=== PATIENT | female | born 1965 | race Caucasian/White ===

== ENCOUNTER 2017-01-12 08:59 | Observation (INO) | payer BC ==
[~2017-01-12] VITALS: Ht 160 cm; Wt 158.8 kg
--- NOTE | ~2017-01-12 | EKG ---
[address] [address] ELECTROCARDIOGRAM REPORT Name: SAMANTHA YEN Room #: 437-P [facility]#: [id number] Admission: 01/12/17 Attend Phys: Tom Alfaro MD Discharge: Date of : 63 Report #: [id number] THIS REPORT FOR: //name// [facility] ED Test Date: 2017-01-12 Test Time: 09:05:12 Pat Name: SAMANTHA YEN Department: Room: [facility] Gender: F [place] Cashier: THIERNO : 1965 Requested By: Barbara Esteves Order Number: [id number] MD: Nick French Measurements Intervals [place] Rate: 58 P: 20 MS: 141 QRS: 13 QRSD: 97 T: 41 QT: 403 QTc: 396 Interpretive Statements Sinus bradycardia Poor R wave progression Compared to ECG 09/04/2015 10:30:10 Sinus arrhythmia no longer present Electronically Signed On 01-12-2017 16:32:29 CDT by Nick French [email or web address] <ELECTRONICALLY SIGNED> By: Nick French MD, [facility] 01/12/17 1632 09 09 Nick French MD, [facility] /EPI
--- NOTE | ~2017-01-12 | 2DMMODE ---
[facility] [address] [place] [address] 2 D/M-MODE ECHOCARDIOGRAM Name: SAMANTHA YEN Room #: 437-P ADM IN M.R.#: [id number] Admission: 01/12/17 Attend Phys: Tom Alfaro, Discharge: Date of : 63 Date of Service: 01/12/17 1612 Report #: [id number] THIS REPORT FOR: //name// APPROVED REPORT Study performed: 01/12/2017 15:09:08 EXAM: Comprehensive 2D, Doppler, and color-flow Echocardiogram Patient Location: Echo lab Room #: 437 Status: routine BSA: 2.43 HR: 45 bpm BP: 151/81 mmHg Other Information Study Quality: Adequate Indications Dyspnea Chest Pain Hypertension/HDD Morbid obesity. 2D Dimensions RVDd: 39.02 mm LVEF(%): 69.02 (>50%) IVSd: 12.55 (7-11mm) LVOT Diam: 21.48 (18-24mm) LVDd: 51.63 mm PWd: 13.21 (7-11mm) Ascending Ao: 29.38 (22-36mm) LVDs: 31.52 (25-40mm) Aortic Root: 28.33 mm IVC: 14.00 mm Fu's LVEF: 69.02 % Volumes Left Atrial Volume (Systole) Single Plane 4CH: 55.81 mL Single Plane 2CH: 50.22 mL LA ESV Index: 25.00 mL/m2 Aortic Valve AoV Peak Cr.: 1.93 m/s AO Peak Gr.: 14.87 mmHg LVOT Max P.86 mmHg LVOT Max V: 1.10 m/s ANTHONY Vmax: 2.07 cm2 Mitral Valve [facility] [place] [address] [place] [address] 2 D/M-MODE ECHOCARDIOGRAM Name: SAMANTHA YEN Room #: 437-[facility] IN .R.#: [id number] Admission: 01/12/17 Attend Phys: Tom Alfaro, Discharge: Date of : 63 Date of Service: 01/12/17 1612 Report #: [id number] E/A Ratio: 1.2 MV Decel. Time: 186.05 ms MV E Max Cr.: 1.07 m/s MV A Cr.: 0.89 m/s MV PHT: 53.96 ms IVRT: 92.27 ms Pulmonary Valve PV Peak Cr.: 1.08 m/s PV Peak Gr.: 4.69 mmHg Pulmonary Vein P Vein S: 0.74 m/s P Vein A: 0.28 m/s P Vein D: 0.56 m/s P Vein A Dur.: 129.2 msec P Vein S/D Ratio: 1.32 Tricuspid Valve TR Peak Cr.: 2.77 m/s TR Peak Gr.: 30.72 mmHg PA Pressure: 36.00 mmHg Left Ventricle The left ventricle is normal size. Mild concentric left ventricular hypertrophy. The left ventricular systolic function is normal. The left ventricular ejection fraction is within the normal range. LVEF is 60-65%. The left ventricular diastolic function is normal. Right Ventricle The right ventricle is normal size. The right ventricular systolic function is normal. Atria The left atrium size is normal. The right atrium size is normal. Aortic Valve The aortic valve is normal in structure. Trace aortic regurgitation. There is no aortic valvular stenosis. Mitral Valve The mitral valve is normal in structure. Trace mitral regurgitation. No evidence of mitral valve stenosis. Tricuspid Valve The tricuspid valve is normal in structure. There is trace to mild tricuspid regurgitation. The right atrial pressure is estimated at 5 mmHg. There [place] [address] 2 D/M-MODE ECHOCARDIOGRAM Name: SAMANTHA YEN Room #: 437-P [facility] [place] [facility]#: [id number] Admission: 01/12/17 Attend Phys: Tom Alfaro, Discharge: Date of : 63 Date of Service: 01/12/17 1612 Report #: [id number] Pulmonic Valve The pulmonary valve is normal in structure. There is no pulmonic valvular regurgitation. Great Vessels The aortic root is normal in size. IVC is normal in size and collapses >50% with inspiration. Pericardium There is no pericardial effusion. <Conclusion> The left ventricular systolic function is normal. The left ventricular ejection fraction is within the normal range. Mild concentric left ventricular hypertrophy. LVEF is 60-65%. The left ventricular diastolic function is normal. The left atrium size is normal. The aortic valve is normal in structure. Trace mitral regurgitation. There is trace to mild tricuspid regurgitation. The right atrial pressure is estimated at 5 mmHg. There is mild pulmonary hypertension. There is no pericardial effusion. <ELECTRONICALLY SIGNED> By: Reymundo Serna MD, FACC 01/12/171611 11 11 Reymundo Serna MD, FACC /INF
[~2017-01-12 08:59] MED LIST: ADULT LOW DOSE81 MG PO; ATIVAN0.5 M1 PO; AUGMENTIN 875875 MG; BYSTOLIC 5 MG5 M1; BYSTOLIC 5 MG5 M1 PO; HYDROCHLOROTHIA25 M1 PO; K-DUR10 ME1 PO; LEXAPRO5 MG PO; LISINOPRIL20 MG PO; MECLIZINE HCL25 M1 PO; TYLENOL EX-STR500 M2 PO; VALIUM5 MG PO; VALTREX1000 MG PO; ZOCOR 20 MG TAB20 M1 PO
[2017-01-12 09:00] VITALS: BP 201/85
[2017-01-12] MEDS ORDERED: NORVASC2.5 MG PO (09:17)
[2017-01-12 09:46] LABS: ABSOLUTE NEUTROPHILS 4.2 thou/uL (1.4-8.2); BASOPHILS 1.1 % (0.0-2.0); EOSINOPHILS 1.8 % (0.0-3.0); HEMATOCRIT 41.7 % (37.0-47.0); HEMOGLOBIN 13.9 gm/dL (12.0-15.0); LYMPHOCYTES 29.4 % (24.0-44.0); MANUAL DIFF NO; MCH 26.9 pg (26.0-34.0); MCHC 33.3 g/dL (28.0-37.0); MCV 80.8 fL (80.0-100.0); MONOCYTES 7.2 % (1.0-8.0); PLATELET COUNT 277 thou/uL (150-400); POLYS 60.5 % (36.0-66.0); RBC 5.16 mil/uL (4.20-5.00); RDW 16.1 % (10.5-14.5); WBC 6.9 thou/uL (4.0-11.0)
[2017-01-12 09:52] LABS: URINE BILIRUBIN NEGATIVE (Negative); URINE BLOOD NEGATIVE (Negative); URINE COLOR YELLOW; URINE GLUCOSE-RANDOM* NEGATIVE (Negative); URINE KETONES NEGATIVE (Negative); URINE NITRITE NEGATIVE (Negative); URINE PROTEIN (DIPSTICK) NEGATIVE (Negative); URINE UROBILINOGEN 0.2 E.U./dl (0.2-1.0)
[2017-01-12 09:55] LABS: ANION GAP 8 mmol/L (7-16); BUN 15 mg/dL (7-18); CALCIUM 8.8 mg/dL (8.5-10.1); CHLORIDE 104 mmol/L (98-107); CO2 28 mmol/L (21-32); CREATININE 0.8 mg/dL (0.6-1.0); GLUCOSE 113 mg/dL (74-106); POTASSIUM 4.1 mmol/L (3.5-5.1); SODIUM 140 mmol/L (136-145)
[2017-01-12 10:03] LABS: TROPONIN-I < 0.04 ng/mL (<0.04-0.07)
[2017-01-12 10:18] VITALS: BP 143/80
[2017-01-12 10:50] VITALS: BP 151/51
[2017-01-12 15:48] VITALS: BP 148/71
[2017-01-12 19:13] VITALS: BP 138/64
[2017-01-13 05:10] LABS: GLYCOHEMOGLOBIN (HGB A1C) 5.4 % (4.8-5.6)
[2017-01-13 05:17] VITALS: BP 143/79
[2017-01-13 07:29] LABS: CHOLESTEROL 180 mg/dL (<200); HDL CHOLESTEROL 33 mg/dL (>40); LDL CHOLESTEROL 114 mg/dL (<100); TC:HDL 5.5 Ratio (Not establshd); TRIGLYCERIDE 168 mg/dL (<150); VLDL 34 mg/dL (<40)
[2017-01-13 08:23] VITALS: BP 121/57
[2017-01-13] MEDS ORDERED: PROTONIX40 M1 PO (12:57)
[2017-01-13 14:11] VITALS: BP 121/57
[2017-01-13 14:14] VITALS: BP 121/57
== END 2017-01-13 15:00 | disposition home or self-care (01) ==
LOC: ER 08:59 → 4S 10:21 → EROBS 10:21 → 4S 11:37 → ENTRNSPT 01-13 15:02 → EDTRNSPTSTS 01-13 15:04
PROVIDERS: Emergency Medicine; Nurse Practitioner
DX: R07.89 Other chest pain (principal); I10 Essential (primary) hypertension; E66.9 Obesity, unspecified; F41.9 Anxiety disorder, unspecified; R10.13 Epigastric pain; R00.0 Tachycardia, unspecified; R00.1 Bradycardia, unspecified; Z79.899 Other long term (current) drug therapy